=== PATIENT | male | born 1995 | race African-American/Black ===

== ENCOUNTER 2024-10-26 15:42 | Outpatient (CLI) | payer OTHER, SELFPAY ==
--- NOTE | ~2024-10-26 | XR_ITS ---
2 VIEWS STERNUM Ordering provider: Deepti Marlow, ENGINEERING DOCUMENT CONTROL CLERK History: . Localized swelling, mass and lump, trunk . Comparison: None. FINDINGS: BONES: No sternal fracture. JOINTS: Sternoclavicular joints is well maintained without dislocation. SOFT TISSUES: Normal. IMPRESSION: No acute osseous abnormality. If still suspicious CT is advised. Reviewed, dictated and finalized at location A.
== END 2024-10-26 15:43 | disposition home or self-care (01) ==
PROVIDERS: PCP Nurse Practitioner; Visit Provider Nurse Practitioner
DX: R22.2 Localized swelling, mass and lump, trunk (principal)
CPT/HCPCS: 71120

== ENCOUNTER 2024-11-02 10:21 | Outpatient (CLI) | payer OTHER, SELFPAY ==
--- NOTE | ~2024-11-02 | CT_ITS ---
CT Scan of the Chest without Contrast: Clinical Indication: Sternal lump Technique: Contiguous sections were acquired throughout the chest without intravenous contrast. Dose reduction technique was used on this scan by utilizing automated exposure control and iterative recon struction technique. The dose-length product (DLP) was 158.69 mGy-cm. Findings: There is no evidence of any significant mediastinal, hilar or axillary lymphadenopathy. The mediastin al soft tissues appear normal. There is no evidence of pleural or pericardial effusion. The lungs are clear. No pulmonary nodules or infiltrates are noted. Images through the upper abdomen reveal no abnormalities. Impression: No significant abnormalities seen. In particular, no abnormality seen at the region of the BB at the region of the upper sternum. Reviewed, dictated and finalized at location . Impression: No significant abnormalities seen. In particular, no abnormality seen at the re gion of the BB at the region of the upper sternum.
== END 2024-11-02 10:22 | disposition home or self-care (01) ==
LOC: MICIMG 10:21
PROVIDERS: PCP Nurse Practitioner; Visit Provider Nurse Practitioner
DX: R22.2 Localized swelling, mass and lump, trunk (principal)
CPT/HCPCS: 71250